=== PATIENT | female | born 1970 | race African-American/Black ===

== ENCOUNTER → 2017-04-12 | Outpatient (CLI) | payer MEDICARE ==
[~2017-04-12] MED LIST: CITA40TA4 PO; ESTR0.62 VAGINAL; FERR325T8 PO; GABA100C4 PO; LISI10TA3 PO; MELO-1 PO; TRAZ100T6 PO
[2017-04-12 13:15] LABS: HEMATOCRIT 31.5 % (35.0-46.0); MEAN CORPUSCULAR HEMOGLOBIN 24.9 PG (27.0-34.0); MEAN CORPUSCULAR HGB CONC 32.3 % (32.0-36.0); PLATELET COUNT 406 TH/MM3 (150-450); RED BLOOD COUNT 4.08 MIL/MM3 (4.00-5.30); RED CELL DISTRIBUTION WIDTH 20.9 % (11.6-17.2); REVIEW FLAG FINAL; WHITE BLOOD COUNT 7.6 TH/MM3 (4.0-11.0)
[2017-04-12 13:18] LABS: ANION GAP 11 MEQ/L (5-15); AST (GOT) 21 U/L (15-37); BICARBONATE 21.3 MEQ/L (21.0-32.0); BLOOD UREA NITROGEN 8 MG/DL (7-18); CHLORIDE 102 MEQ/L (98-107); GLOMERULAR FILTRATION RATE 90 ML/MIN (>89); GLUCOSE,FASTING 73 MG/DL (74-99); POTASSIUM 4.2 MEQ/L (3.5-5.1); SODIUM (NA) 134 MEQ/L (136-145)
[2017-04-12 13:45] LABS: ALKALINE PHOSPHATASE 101 U/L (45-117); ALT (GPT) 22 U/L (10-53); HDL CHOLESTEROL 59.9 MG/DL (40.0-60.0); LDL CHOLESTEROL 105 MG/DL (0-99); TOTAL BILIRUBIN ADULT 0.3 MG/DL (0.2-1.0)
[2017-04-12 14:42] LABS: MICRO ALBUMIN RANDOM URINE RAW 5.4 MG/L (0.0-30.0)
== END ==
LOC: PLAB 08:20
PROVIDERS: ATTEND Family Medicine
DX: D64.9 Anemia, unspecified (principal); E53.8 Deficiency of other specified B group vitamins; I10 Essential (primary) hypertension; F32.9 Major depressive disorder, single episode, unspecified; E66.9 Obesity, unspecified
CPT/HCPCS: 36415; 80053; 80061; 82043; 82607; 84443; 85027

== ENCOUNTER 2017-09-17 12:38 | Observation (INO) | payer MEDICARE ==
[~2017-09-17] VITALS: Ht 167.6 cm; Wt 130.0 kg
[~2017-09-17 12:38] MED LIST changes: +AMLO10TA2 PO; +FERR325T18 PO; -FERR325T8 PO; +LISI-515 PO; -LISI10TA3 PO; -MELO-1 PO; +MELO15TA20 PO; +TRAZ100T10 PO; -TRAZ100T6 PO
[2017-09-17 12:39] VITALS: BP 139/87; PULSE 91; RESP 16; TEMP 98.6; O2SAT 100
[2017-09-17 13:33] LABS: AUTOMATED NEUTROPHIL # 4.6 TH/MM3 (1.8-7.7); BASOPHIL % 0.5 % (0.0-2.0); EOSINOPHIL # 0.1 TH/MM3 (0-0.4); EOSINOPHIL % 1.3 % (0.0-4.0); HEMOGLOBIN 10.9 GM/DL (11.6-15.3); LYMPH % 28.6 % (9.0-44.0); LYMPHOCYTE # 2.2 TH/MM3 (1.0-4.8); MEAN CELL VOLUME 80.6 FL (80.0-100.0); MEAN CORPUSCULAR HEMOGLOBIN 26.5 PG (27.0-34.0); MEAN CORPUSCULAR HGB CONC 32.9 % (32.0-36.0); MEAN PLATELET VOLUME 7.1 FL (7.0-11.0); MONO % 9.2 % (0.0-8.0); MONOCYTE # 0.7 TH/MM3 (0-0.9); NEUT % 60.4 % (16.0-70.0); PLATELET COUNT 380 TH/MM3 (150-450); RED CELL DISTRIBUTION WIDTH 20.7 % (11.6-17.2); WHITE BLOOD COUNT 7.6 TH/MM3 (4.0-11.0)
[2017-09-17 13:44] LABS: PROTHROMBIN TIME - PATIENT 9.8 SEC (9.8-11.6)
[2017-09-17 13:52] LABS: BICARBONATE 22.5 MEQ/L (21.0-32.0); BLOOD UREA NITROGEN 7 MG/DL (7-18); CALCIUM 8.5 MG/DL (8.5-10.1); CHLORIDE 107 MEQ/L (98-107); CREATININE 0.79 MG/DL (0.50-1.00); GLOMERULAR FILTRATION RATE 94 ML/MIN (>89); GLUCOSE,RANDOM 77 MG/DL (74-106); SODIUM (NA) 138 MEQ/L (136-145)
[2017-09-17 13:56] LABS: TROPONIN I LESS THAN 0.02 NG/ML (0.02-0.05)
--- NOTE | 2017-09-17 13:56 | RADRPT ---
EXAM DATE/TIME: 09/17/2017 13:11 [place] COMPARISON: No previous studies available for comparison. INDICATIONS : Chest pains 5 days. MEDICAL HISTORY : Hypertension. SURGICAL HISTORY : Hysterectomy. ENCOUNTER: Initial ACUITY: 4 - 6 days PAIN SCORE: 6/10 LOCATION: Bilateral chest FINDINGS: PA and lateral views of the chest demonstrate the lungs to be symmetrically aerated without evidence of mass, infiltrate or effusion. The cardiomediastinal contours are unremarkable. Osseous structure s are intact. CONCLUSION: Normal examination. Harjinder Choudhary Jr., MD on September 17, 2017 at 13:53 Board Certified Radiologist. This report was verified electronically.
[2017-09-17 15:08] VITALS: BP 187/96; PULSE 67; RESP 18; O2SAT 100
--- NOTE | 2017-09-17 15:21 | PD ---
HPI Chief Complaint: Chest Pain Time Seen by Provider: 14:52 Travel History International Travel<30 days: No Contact w/Intl Traveler<30days: No Traveled to known affect area: No History of Present Illness HPI 47-year-old female presents to the ED for evaluation of cold and cough symptoms 5 days. Patient states that she began having intermittent substernal chest pain that radiates to the back yesterday. Onset at rest, lasting variable periods before resolving spontaneously. Patient endorses accompanying shortness of breath and palpitations. Patient states this pain is worsened by coughing. She endorses a fever of 100.1 by aural thermometer 2 days ago. She reports night sweats. She states that she drinks 12 24 ounce beers daily. She states that she has been attempting to cut back. States that she had an alcohol withdrawal seizure last week and was seen in an outpatient clinic. No history of seizures in the past. She is noncompliant with her antihypertensive medications. She endorses familial history of [place] and her father and grandfather. She denies cigarette smoking or illicit drug use. He is never had a cardiac evaluation. PFSH Past Medical History Anxiety: Yes Depression: Yes Cardiovascular Problems: Yes Hypertension: Yes Neurologic: Yes (PERIPHERAL NEUROPATHY) Seizures: Yes (ETOH WITHDRAWL) Tetanus Vaccination: < 5 Years Influenza Vaccination: Yes ?: Not Past Surgical History Abdominal Surgery: Yes (HERNIA REPAIR, GASTRIC BYPASS) Appendectomy: Yes Section: Yes (X2) Cholecystectomy: Yes Hysterectomy: Yes Social History Alcohol Use: Yes (15 24 OZ CANS BEER) Tobacco Use: No Substance Use: No Allergies-Medications (Allergen,Severity, Reaction): Coded Allergies: Penicillins (Verified Allergy, Severe, skin melgoza, stomach melgoza, 09/17/17) diphenhydramine (Verified Allergy, Severe, hives, 09/17/17) Reported Meds & Prescriptions Reported Meds & Active Scripts Active Amlodipine (Amlodipine Besylate) 10 Mg Tab 10 Mg PO DAILY Lisinopril 20 Mg Tab 20 Mg PO DAILY Premarin Vaginal (Estrogens, Conjugated Vaginal) 0.625 Mg/Gm Cream 1 Gm VAGINAL HS Ferrous Sulfate 325 Mg (65 Mg Iron) Tablet 325 Mg PO BIDPC Citalopram (Citalopram Hydrobromide) 40 Mg Tab 40 Mg PO DAILY Trazodone (Trazodone HCl) 100 Mg Tablet 100 Mg PO HS Gabapentin 100 Mg Cap 100 Mg PO TID Meloxicam 15 Mg Tab 15 Mg PO DAILY Review of Systems Except as stated in HPI: all other systems reviewed are Neg Physical Exam Narrative GENERAL: Well-nourished, well-developed obese female in no acute distress. SKIN: Focused skin assessment warm/dry. HEAD: Normocephalic. EYES: No scleral icterus. No injection or drainage. NECK: Supple, trachea midline. No JVD or lymphadenopathy. CARDIOVASCULAR: Regular rate and rhythm without murmurs, gallops, or rubs. CHEST: Nontender throughout without deformity or crepitus. No retractions. RESPIRATORY: Breath sounds clear and equal bilaterally. No accessory muscle use. GASTROINTESTINAL: Abdomen soft, non-tender, nondistended. Active bowel sounds. MUSCULOSKELETAL: No cyanosis, or edema. BACK: Nontender without obvious deformity. No CVA tenderness. Data Data Last Documented VS Vital Signs Date Time Temp Pulse Resp B/P (MAP) Pulse Ox O2 Delivery O2 Flow Rate FiO2 09/17/17 15:08 67 18 187/96 (126) 100 Room Air 09/17/17 12:39 98.6 Orders Orders Electrocardiogram (09/17/17 12:43) Basic Metabolic Panel (Bmp) (09/17/17 12:43) Ckmb (Isoenzyme) Profile (09/17/17 12:43) Complete Blood Count With Diff (09/17/17 12:43) Magnesium (Mg) (09/17/17 12:43) Prothrombin Time / Inr (Pt) (09/17/17 12:43) Act Partial Throm Time (Ptt) (09/17/17 12:43) Troponin I (09/17/17 12:43) Chest, Pa & Lat (09/17/17 12:43) Influenzae A/B Antigen (09/17/17 12:43) CKMB (09/17/17 12:56) CKMB% (09/17/17 12:56) Alcohol (Ethanol) (09/17/17 15:23) Alcohol Withdrawal Asmt-Ciwa ONCE (09/17/17 15:24) Flumazenil Inj (Romazicon Inj) (09/17/17 15:30) Lorazepam (Ativan) (09/17/17 15:30) Lorazepam Inj (Ativan Inj) (09/17/17 15:30) Lorazepam (Ativan) (09/17/17 15:30) Lorazepam Inj (Ativan Inj) (09/17/17 15:30) Lorazepam Inj (Ativan Inj) (09/17/17 15:30) Lorazepam Inj (Ativan Inj) (09/17/17 15:30) Admit Order (Ed Use Only) (09/17/17 17:02) Labs Laboratory Tests Test 09/17/17 12:56 White Blood Count 7.6 TH/MM3 Red Blood Count 4.10 MIL/MM3 Hemoglobin 10.9 GM/DL Hematocrit 33.0 % Mean Corpuscular Volume 80.6 FL Mean Corpuscular Hemoglobin 26.5 PG Mean Corpuscular Hemoglobin Concent 32.9 % Red Cell Distribution Width 20.7 % Platelet Count 380 TH/MM3 Mean Platelet Volume 7.1 FL Neutrophils (%) (Auto) 60.4 % Lymphocytes (%) (Auto) 28.6 % Monocytes (%) (Auto) 9.2 % Eosinophils (%) (Auto) 1.3 % Basophils (%) (Auto) 0.5 % Neutrophils # (Auto) 4.6 TH/MM3 Lymphocytes # (Auto) 2.2 TH/MM3 Monocytes # (Auto) 0.7 TH/MM3 Eosinophils # (Auto) 0.1 TH/MM3 Basophils # (Auto) 0.0 TH/MM3 CBC Comment DIFF FINAL Differential Comment Prothrombin Time 9.8 SEC Prothromb Time International Ratio 1.0 RATIO Activated Partial Thromboplast Time 23.6 SEC Blood Urea Nitrogen 7 MG/DL Creatinine 0.79 MG/DL Random Glucose 77 MG/DL Calcium Level 8.5 MG/DL Magnesium Level 2.0 MG/DL Sodium Level 138 MEQ/L Potassium Level 4.0 MEQ/L Chloride Level 107 MEQ/L Carbon Dioxide Level 22.5 MEQ/L Anion Gap 9 MEQ/L Estimat Glomerular Filtration Rate 94 ML/MIN Total Creatine Kinase 121 U/L Creatine Kinase MB 0.6 NG/ML Troponin I LESS THAN 0.02 NG/ML Ethyl Alcohol Level 8 MG/DL [facility] Medical Decision Making Medical Screen Exam Complete: Yes Emergency Medical Condition: Yes Differential Diagnosis Viral syndrome versus pleurisy versus alcohol withdrawal versus ACS versus other Narrative Course 47-year-old female presents to the ED for evaluation of cold and cough symptoms 5 days. Patient states that she began having intermittent substernal chest pain that radiates to the back yesterday. Onset at rest, lasting variable periods before resolving spontaneously. Accompanied by SOB and palpitations. She endorses a fever of 100.1 by aural thermometer 2 days ago. She reports night sweats. Endorses 1224 ounce beers daily, endorses recent seizure secondary to attempting to quit. No history of seizures in the past. She is noncompliant with her antihypertensive medications. She endorses familial history of MN and her father and grandfather. She denies cigarette smoking or illicit drug use. She has never had a cardiac evaluation. Patient is afebrile on presentation. Physical exam reveals an obese AA female in no acute distress. Chest CTAB. No reproducible pain in the precordium. Abdomen soft and nontender. No lower extremity edema. Patient was placed on CIWA protocol. EKG rate 84, sinus rhythm. TN interval 138, QRS 82, QTC 43 ms. Normal axis. No acute ST changes. Reviewed by Dr. Nath CXR: No acute disease per radiology read. Cardiac enzymes negative 1. CBC: Hemoglobin 10.9, chronic per record review. Coags: INR 1.0 BMP: Unremarkable. Alcohol: 8 I discussed the results of the workup with the patient. Given her cardiac risk factors I recommended observation for serial cardiac enzymes and EKGs. Patient is agreeable to this plan. Spoke with the resident to agree to accept the patient to the medicine service. Please see medicine notes for disposition. Barbara Elliott Sep 17, 2017 15:21
[2017-09-17] MEDS ORDERED: LORazepam 1 MG TAB PO PRN ×2 (15:30→18:15)
[2017-09-17] MEDS ORDERED: LORazepam 2 MG TAB PO PRN ×2 (15:30→18:15)
[2017-09-17] MEDS ORDERED: FLUMAZENIL 0.5 MG/5 ML VIAL IV PUSH PRN ×2 (15:30→18:15)
[2017-09-17] MEDS ORDERED: LORazepam 2 MG/ML VIAL IV PUSH PRN ×7 (15:30→18:15)
--- NOTE | 2017-09-17 17:48 | HHI.HP ---
[facility] Service Family Medicine Primary Care Physician Stanislav Junior MD Admission Diagnosis chest pain Diagnoses: International Travel<30 Days: No Contact w/Intl Traveler<30days: No Known Affected Area: No History of Present Illness The patient is a pleasant 47 year old woman with PMH significant for HTN and RA being evaluated for chest pain. Patient states she started having chest pain beginning this past Saturday. Patient states her chest pain initially was centrally located, dull and achy and felt similar to heartburn. Patient reports the chest pain radiated to her right lateral side and to her back. Patient then states her chest pain started to feel different over the past 2-3 days. States her chest pain changed and became more intense to a 6-7/10, states the chest pain is sharper and continues to radiate to her right lateral side and right upper back. Denies any left-sided or crushing chest pain, radiation into her arms or jaws. Denies diaphoresis. Patient states she usually drinks about 12-15 24oz cans of beer a day. Denies drinking any other types of etoh. Patient states her last drink was this morning nicki. 05:30. Patient was recently evaluated at the [facility] at the end of August due to possible seizure like activity and thought she might have bitten her tongue. She denies any further seizures or seizure like activity since then. Denies any focal neuro deficit. She does report a fever yesterday she states of 100.1 taken orally. Also endorses mild cough sometimes productive. Denies significant nasal or chest congestion. (Jorje Zamarripa MD) Review of Systems Constitutional: COMPLAINS OF: Fever, DENIES: Chills, Dizziness, Change in appetite Eyes: DENIES: Blurred vision, Diplopia Respiratory: COMPLAINS OF: Cough, Sputum production, DENIES: Wheezing, Hemoptysis, Shortness of breath Cardiovascular: COMPLAINS OF: Chest pain, DENIES: Palpitations, Lower Extremity Edema Gastrointestinal: DENIES: Abdominal pain, Black stools, Bloody stools, Constipation, Diarrhea, Nausea, Vomiting Genitourinary: DENIES: Hematuria, Dysuria Musculoskeletal: COMPLAINS OF: Back pain, DENIES: Joint pain, Neck pain Integumentary: DENIES: Rash Neurologic: COMPLAINS OF: Headache, DENIES: Localized weakness, Tremor ( Jorje Zamarripa MD) Endocrine: DENIES: Polydipsia, Polyuria Ears, nose, mouth, throat: COMPLAINS OF: Nasal discharge (resolving), Throat pain (from recent URI, improving), DENIES: Oral lesions, Ear Pain, Epistaxis, Sinus Pain, Odynophagia Respiratory: COMPLAINS OF: Cough (recent URI) Musculoskeletal: COMPLAINS OF: Joint pain (bilateral lower extremities, chronic , improved with NSAIDs) Neurologic: COMPLAINS OF: Paresthesias (chronic right upper extremity, intermittent) Psychiatric: COMPLAINS OF: Mood changes (endorses significant stress), DENIES: Suicidal Ideation (Lesly Marquez MD) Past Family Social History Past Medical History RA HTN Depression Insomnia Neuropathy, unspecified cause Sickle cell trait Past Surgical History Hysterectomy in 2002, cervix removed Gastric Bypass 2006 Cholecystectomy in 2015 Umbilical hernia repair in 2015 C-sections x2 (Jorje Zamarripa MD) Allergies: Coded Allergies: Penicillins (Verified Allergy, Severe, skin melgoza, stomach melgoza, 09/17/17) diphenhydramine (Verified Allergy, Severe, hives, 09/17/17) Family History Father: HTN, Heart disease Mother: RA Social History Denies tobacco use Admits to drinking 12-15 24oz cans of beers daily Denies illicit substance use Works as a live in support professional for 6 years (Jorje Zamarripa MD) Physical Exam Vital Signs Vital Signs Date Time Temp Pulse Resp B/P (MAP) Pulse Ox O2 Delivery O2 Flow Rate FiO2 09/17/17 15:08 67 18 187/96 (126) 100 Room Air 09/17/17 12:39 98.6 91 16 139/87 (104) 100 Room Air Physical Exam GENERAL: NAD, lying comfortably in bed NEURO: Alert. Normal speech. nursing assoc grossly intact. Motor grossly normal. SKIN: Warm and dry. No rashes or erythema. HEAD: Normocephalic. Atraumatic. EYES: PERRL. EOMI. No scleral icterus. No injection or drainage. ENT: No nasal drainage. Moist mucous membranes. No oral ulcers or lesions. NECK: Supple, trachea midline. No JVD or lymphadenopathy. No carotid bruits. CHEST WALL: Tenderness to palpation of central and right-sided chest wall CARDIOVASCULAR: Regular rate and rhythm without murmurs, rubs, or gallops. Peripheral pulses 2+. Capillary refill < 2 seconds. RESPIRATORY: Breath sounds clear to auscultation and equal bilaterally, without wheezes, rales, or rhonchi. No accessory muscle use. GASTROINTESTINAL: Abdomen soft, nontender, nondistended, normal BS. No rebound tenderness. No guarding. MUSCULOSKELETAL: No lower extremity edema. Normal range of motion. BACK: Nontender without obvious deformity. No CVA tenderness. Laboratory Laboratory Tests Test 09/17/17 12:56 White Blood Count 7.6 Red Blood Count 4.10 Hemoglobin 10.9 Hematocrit 33.0 Mean Corpuscular Volume 80.6 Mean Corpuscular Hemoglobin 26.5 Mean Corpuscular Hemoglobin Concent 32.9 Red Cell Distribution Width 20.7 Platelet Count 380 Mean Platelet Volume 7.1 Neutrophils (%) (Auto) 60.4 Lymphocytes (%) (Auto) 28.6 Monocytes (%) (Auto) 9.2 Eosinophils (%) (Auto) 1.3 Basophils (%) (Auto) 0.5 Neutrophils # (Auto) 4.6 Lymphocytes # (Auto) 2.2 Monocytes # (Auto) 0.7 Eosinophils # (Auto) 0.1 Basophils # (Auto) 0.0 CBC Comment DIFF FINAL Differential Comment Prothrombin Time 9.8 Prothromb Time International Ratio 1.0 Activated Partial Thromboplast Time 23.6 Blood Urea Nitrogen 7 Creatinine 0.79 Random Glucose 77 Calcium Level 8.5 Magnesium Level 2.0 Sodium Level 138 Potassium Level 4.0 Chloride Level 107 Carbon Dioxide Level 22.5 Anion Gap 9 Estimat Glomerular Filtration Rate 94 Total Creatine Kinase 121 Creatine Kinase MB 0.6 Troponin I LESS THAN 0.02 Ethyl Alcohol Level 8 Date/Time Source Procedure Growth Status 09/17/17 12:56 Nasal Washing Influenza Types A,B Antigen (VERA) - Final NEGATIVE FOR FLU A AND B ANTIGEN.... Complete (Jorje Zamarripa MD) Physical Exam Pharyngeal erythema without exudate is noted. No sinus tenderness. Patient has diffuse tenderness to palpation over thorax, and indicates some reproduction of chest pain No gross joint deformity appreciated for upper and lower extremities. No nodules Exam otherwise as above (Lesly Marquez MD) Result Diagram: 09/17/17 1256 09/17/17 1256 Imaging Last 72 hours Impressions Chest X-Ray 09/17/17 1243 Signed Impressions: Service Date/Time: Sunday, September 17, 2017 13:11 - CONCLUSION: Normal examination. Harjinder Choudhary Jr., MD (Jorje Zamarripa MD) Caprini VTE Risk Assessment Caprini VTE Risk Assessment: Mod/High Risk (score >= 2) Caprini Risk Assessment Model Point Value = 1 Point Value = 2 Point Value = 3 Point Value = 5 Age 41-60 Minor surgery BMI > 25 kg/m2 Swollen legs Varicose veins or History of unexplained or recurrent spontaneous Oral contraceptives or hormone replacement Sepsis (< 1 month) Serious lung disease, including pneumonia (< 1 month) Abnormal pulmonary function Acute myocardial infarction Congestive heart failure (< 1 month) History of inflammatory bowel disease Medical patient at bed rest Age 61-74 Arthroscopic surgery Major open surgery (> 45 min) Laparoscopic surgery (> 45 min) Malignancy Confined to bed (> 72 hours) Immobilizing plaster cast Central venous access Age >= 75 History of VTE Family history of VTE Factor V Leiden Prothrombin [id number] Lupus anticoagulant Anticardiolipin antibodies Elevated serum homocysteine Heparin-induced thrombocytopenia Other congenital or acquired thrombophilia Stroke (< 1 month) Elective arthroplasty Hip, pelvis, or leg fracture Acute spinal cord injury (< 1 month) Prophylaxis Regimen Total Risk Factor Score Risk Level Prophylaxis Regimen 0-1 Low Early ambulation 2 Moderate Order ONE of the following: *Sequential Compression Device (SCD) *Heparin 5000 units SQ BID 3-4 Higher Order ONE of the following medications: *Heparin 5000 units SQ TID *Enoxaparin/Lovenox 40 mg SQ daily (WT < 150 kg, CrCl > 30 mL/min) *Enoxaparin/Lovenox 30 mg SQ daily (WT < 150 kg, CrCl > 10-29 mL/min) *Enoxaparin/Lovenox 30 mg SQ BID (WT < 150 kg, CrCl > 30 mL/min) AND/OR *Sequential Compression Device (SCD) 5 or more Highest Order ONE of the following medications: *Heparin 5000 units SQ TID (Preferred with Epidurals) *Enoxaparin/Lovenox 40 mg SQ daily (WT < 150 kg, CrCl > 30 mL/min) *Enoxaparin/Lovenox 30 mg SQ daily (WT < 150 kg, CrCl > 10-29 mL/min) *Enoxaparin/Lovenox 30 mg SQ BID (WT < 150 kg, CrCl > 30 mL/min) AND *Sequential Compression Device (SCD) (Jorje Zamarripa MD) Assessment and Plan Assessment and Plan 47 year old woman being admitted due to chest pain and etoh abuse. Code Status Full code Discussed Condition With [facility] Service (Jorje Zamarripa MD) Attending Attestation Patient seen and examined this morning, H&P reviewed, and corroborated at bedside with patient. See interval progress documented in resident note from . I HAVE REVIEWED THE RECORD AND AGREE WITH THE ABOVE NOTE AND PLAN OF CARE WAS DISCUSSED. I HAVE AUTHORIZED THE ORDER FOR PLACEMENT IN OBSERVATION STATUS. (Lesly Marquez MD) Problem List: (1) Chest pain ICD Codes: R07.9 - Chest pain, unspecified Status: Acute Plan: DDX includes ACS, costochondritis, GERD, pneumonia, P/E, anxiety EKG shows NSR without acute ST changes Initial troponin < 0.02 CXR without acute findings Plan: - Rule out ACS trend EKGs and troponins q6h x2 - Will start motrin 400 mg po q6h due to patient possibly having costochondritis - Give aspirin 81mg po now - Start metoprolol 25 mg po q12h - Protonix 40 mg po daily (2) ETOH abuse ICD Codes: F10.10 - Alcohol abuse, uncomplicated Status: Chronic Plan: - [facility] protocol - Give thiamine, MV, folic acid PO - Consult CM-etoh abuse to assist with discharge planning (3) Hypertension ICD Codes: I10 - Essential (primary) hypertension Status: Chronic Plan: - BP noted to be elevated to 187/98 earlier - Resume home medications amlodipine 10 mg po daily and lisinopril 20 mg po daily - Start metoprolol as above - Monitor vitals q4h (4) Anemia ICD Codes: D64.9 - Anemia, unspecified Status: Chronic Plan: H/H noted at 10.9/33.0, continue to monitor Continue ferrous sulfate 325 mg bid (5) Nutrition, metabolism, and development symptoms ICD Codes: R63.8 - Other symptoms and signs concerning food and fluid intake Status: Acute Plan: Fluids: NS at 100 cc/hr Electrolytes: WNL, continue to monitor Nutrition: heart healthy diet DVT ppx: Lovenox 40 mg sq q24h GI ppx: Protonix by mouth Depression: resume home celexa (Jorje Zamarripa MD) Physician Certification 2 Midnight Certification Type: Admission for Inpatient Services Order for Inpatient Services The services are ordered in accordance with Medicare regulations or non- Medicare payer requirements, as applicable. In the case of services not specified as inpatient-only, they are appropriately provided as inpatient services in accordance with the 2-midnight benchmark. Estimated LOS (days): 1 days is the estimated time the patient will need to remain in the hospital, assuming treatment plan goals are met and no additional complications. Post-Hospital Plan: Home (Jorje Zamarripa MD) Jorje Zamarripa MD Sep 17, 2017 17:48 Lesly Marquez MD Sep 18, 2017 13:44
[2017-09-17] MEDS ORDERED: SODIUM CHLORIDE 0.9% FLUSH 10 ML FLUSH IV FLUSH PRN ×2 (18:00→18:15)
[2017-09-17] MEDS ORDERED: NALOXONE HCL 0.4 MG/ML AMP IV PUSH PRN (18:15)
[2017-09-17] MEDS ORDERED: ONDANSETRON HCL 4 MG/2 ML VIAL IVP PRN (18:15)
[2017-09-17] MEDS: IBUPROFEN 400 MG TAB PO SCH (18:15)
[2017-09-17] MEDS ORDERED: SENNOSIDES 8.6 MG TAB PO PRN (18:15)
[2017-09-17] MEDS ORDERED: ZOLPIDEM TARTRATE 5 MG TAB PO PRN (18:15)
[2017-09-17] MEDS ORDERED: BISACODYL 10 MG SUPP RECTAL PRN (18:15)
[2017-09-17] MEDS ORDERED: MAGNESIUM HYDROXIDE SUSP 30 ML CUP PO PRN (18:15)
[2017-09-17] MEDS ORDERED: LACTULOSE SYRUP 20 GM/30 ML CUP PO PRN (18:15)
[2017-09-17 18:27] VITALS: BP 143/103; PULSE 72; RESP 15; O2SAT 100
[2017-09-17] MEDS: LISINOPRIL 20 MG TAB PO SCH (18:30)
[2017-09-17 19:36] VITALS: BP 138/71; PULSE 92; RESP 16; TEMP 98.4; O2SAT 98
[2017-09-17 20:00] VITALS: O2SAT 98
[2017-09-17] MEDS: SODIUM CHLORIDE 0.9% FLUSH 10 ML FLUSH IV FLUSH SCH ×2 (20:05→22:18)
[2017-09-17] MEDS: LORazepam 2 MG/ML VIAL IV PUSH PRN (20:05)
[2017-09-17] MEDS: ASPIRIN 81 MG CHEW TAB CHEW SCH (22:15)
[2017-09-17] MEDS: SODIUM CHLOR 0.9% 1000 ML INJ 1,000 ML IV SCH (22:15)
[2017-09-17] MEDS: CITALOPRAM HYDROBROMIDE 40 MG TAB PO SCH (22:16)
[2017-09-17] MEDS: THIAMINE HCL 100 MG TAB PO SCH (22:16)
[2017-09-17] MEDS: MULTIVITAMINS/MINERALS THERAPEUTIC TAB PO SCH (22:16)
[2017-09-17] MEDS: FERROUS SULFATE 325 MG (65 MG ELEMENTAL IRON) TAB PO SCH (22:16)
[2017-09-17] MEDS: FOLIC ACID 1 MG TAB PO SCH (22:16)
[2017-09-17] MEDS: PANTOPRAZOLE SOD 40 MG DELAYED RELEASE TAB PO SCH (22:16)
[2017-09-17] MEDS: traZODone HCL 100 MG TAB PO SCH (22:17)
[2017-09-17] MEDS: METOPROLOL TARTRATE 25 MG TAB PO SCH (22:17)
[2017-09-17] MEDS: DOCUSATE SODIUM 50 MG/SENNA 8.6 MG TAB PO SCH (22:17)
[2017-09-17] MEDS: ENOXAPARIN SODIUM 40 MG/0.4 ML SYRINGE SQ SCH (22:18)
[2017-09-17 23:21] VITALS: BP 112/59; PULSE 72; RESP 16; TEMP 98.5; O2SAT 95
[2017-09-18] VITALS (7 sets, daily range): BP systolic 118–152; BP diastolic 67–89; PULSE 61–72; RESP 14–18; TEMP 97.4–98.5; O2SAT 95–99
[2017-09-18] MEDS: IBUPROFEN 400 MG TAB PO SCH ×2 (03:55)
[2017-09-18] MEDS: LORazepam 2 MG/ML VIAL IV PUSH PRN ×2 (03:55→11:11)
[2017-09-18 06:21] LABS: AUTOMATED NEUTROPHIL # 4.9 TH/MM3 (1.8-7.7); BASOPHIL % 0.3 % (0.0-2.0); EOSINOPHIL # 0.1 TH/MM3 (0-0.4); EOSINOPHIL % 1.4 % (0.0-4.0); HEMATOCRIT 29.1 % (35.0-46.0); HEMOGLOBIN 9.6 GM/DL (11.6-15.3); LYMPHOCYTE # 2.3 TH/MM3 (1.0-4.8); MEAN CELL VOLUME 80.4 FL (80.0-100.0); MEAN CORPUSCULAR HEMOGLOBIN 26.4 PG (27.0-34.0); MEAN CORPUSCULAR HGB CONC 32.8 % (32.0-36.0); MEAN PLATELET VOLUME 7.2 FL (7.0-11.0); MONO % 9.8 % (0.0-8.0); MONOCYTE # 0.8 TH/MM3 (0-0.9); NEUT % 60.5 % (16.0-70.0); PLATELET COUNT 320 TH/MM3 (150-450); RED BLOOD COUNT 3.62 MIL/MM3 (4.00-5.30); RED CELL DISTRIBUTION WIDTH 21.3 % (11.6-17.2); WHITE BLOOD COUNT 8.1 TH/MM3 (4.0-11.0)
[2017-09-18 06:53] LABS: BICARBONATE 26.2 MEQ/L (21.0-32.0); BLOOD UREA NITROGEN 12 MG/DL (7-18); CALCIUM 8.1 MG/DL (8.5-10.1); CHLORIDE 106 MEQ/L (98-107); CREATININE 0.72 MG/DL (0.50-1.00); GLOMERULAR FILTRATION RATE 105 ML/MIN (>89); GLUCOSE,RANDOM 80 MG/DL (74-106); SODIUM (NA) 138 MEQ/L (136-145)
[2017-09-18 06:56] LABS: TROPONIN I LESS THAN 0.02 NG/ML (0.02-0.05)
[2017-09-18] MEDS: SODIUM CHLORIDE 0.9% FLUSH 10 ML FLUSH IV FLUSH SCH ×4 (09:00→20:24)
[2017-09-18] MEDS: DOCUSATE SODIUM 50 MG/SENNA 8.6 MG TAB PO SCH ×2 (09:00→20:23)
--- NOTE | 2017-09-18 09:15 | HHI.FPPN ---
Subjective Remarks Still with persistent 7 out of 10 chest pain. Worse when laying on her right side and touch. No N/V/diaphoresis, jaw pain, feeling of doom. Had episode on Saturday09/16/2017 when she was in an argument and has crushing substernal cp that was relived with rest after 15 minutes. No blood in stools or diarrhea. Not really complaining of increased acid reflux symptoms. She has been working out more and not having any chest pain while walking on a treadmill. (Miller Livingston MD, R3) Objective Vitals Vital Signs Date Time Temp Pulse Resp B/P (MAP) Pulse Ox O2 Delivery O2 Flow Rate FiO2 09/18/17 08:17 97.8 62 18 152/84 (106) 98 09/18/17 05:29 64 09/18/17 04:21 97.5 71 16 132/75 (94) 95 09/17/17 23:21 98.5 72 16 112/59 (76) 95 09/17/17 20:00 98 09/17/17 19:36 98.4 92 16 138/71 (93) 98 09/17/17 19:27 09/17/17 18:27 72 15 143/103 (116) 100 Room Air 09/17/17 15:08 67 18 187/96 (126) 100 Room Air 09/17/17 12:39 98.6 91 16 139/87 (104) 100 Room Air I/O 09/17/17 09/17/17 09/17/17 09/18/17 09/18/17 09/18/17 07:00 15:00 23:00 07:00 15:00 23:00 Intake Total 850 ml Balance 850 ml Intake Oral 850 ml # Voids 3 (Miller Livingston MD, R3) Result Diagram: 09/18/17 0526 09/18/17 0526 Imaging Last 72 hours Impressions Chest X-Ray 09/17/17 1243 Signed Impressions: Service Date/Time: Sunday, September 17, 2017 13:11 - CONCLUSION: Normal examination. Harjinder Choudhary Jr., MD Objective Remarks GEN: NAD, resting comfortable HEENT: mild proptosis of eyes, PERRL, EOMI, throat slightly erythematous and without exudates or petechiae. Resp: CTAB, breathing comfortably. CV: RRR, faint heart sounds, pulses risk to right radial. Pain on palpation of sternum and pain with movement of right arm when brought passed the midline. GI: SOFT NT ND EXT: no edema in lower extremities. No calf tenderness. (Miller Livingston MD, R3) A/P Assessment and Plan 47 year old woman being admitted due to chest pain and etoh abuse. Discharge Planning today if negative Lexiscan nuclear stress test. (Miller Livingston MD, R3) Attending Attestation THIS CASE WAS DISCUSSED WITH THE RESIDENT PHYSICIAN. H&P reviewed and additional comments added on admit note. I HAVE REVIEWED THE RECORD AND AGREE WITH THE ABOVE NOTE AND PLAN OF CARE WAS DISCUSSED. I HAVE AUTHORIZED THE ORDER FOR PLACEMENT IN OBSERVATION STATUS. (Lesly Marquez MD) Problem List: (1) Chest pain ICD Codes: R07.9 - Chest pain, unspecified Status: Acute Plan: Likely costochondritis vs anxiety.panic. EKG shows NSR. Isolated t wave inversion in lead V1 on admission that has resolved. Troponins < 0.02 x 3. CXR without acute findings Plan: - ACS unlikely given troponin negative x 3, reproducible symptoms on palpation of sternum. However, will get Lexiscan / cardiac nuclear stress test to help rule this out. Can be d/c'ed home if negative. - Give aspirin 81mg po now - Start metoprolol 25 mg po q12h - Protonix 40 mg po daily - Reviewed avoidance of ibuprofen given possible acid reflux and esophagitis symptoms. - Should continue with exercise and healthy diet. (2) ETOH abuse ICD Codes: F10.10 - Alcohol abuse, uncomplicated Status: Chronic Plan: - [facility] protocol - Give thiamine, MV, folic acid PO - Consult CM-etoh abuse to assist with discharge planning (3) Hypertension ICD Codes: I10 - Essential (primary) hypertension Status: Chronic Plan: - BP noted to be elevated on admission. Resolved. - Resume home medications amlodipine 10 mg po daily and lisinopril 20 mg po daily - Start metoprolol as above. Tolerating well. - Monitor vitals q4h (4) Anemia ICD Codes: D64.9 - Anemia, unspecified Status: Chronic Plan: H/H noted at 10.9/33.0, continue to monitor Continue ferrous sulfate 325 mg bid (5) Nutrition, metabolism, and development symptoms ICD Codes: R63.8 - Other symptoms and signs concerning food and fluid intake Status: Acute Plan: Fluids: PO reg diet. Electrolytes: WNL, continue to monitor Nutrition: heart healthy diet DVT ppx: Lovenox 40 mg sq q24h GI ppx: Protonix by mouth Depression: resume home celexa SDW Dr. Marquez (Miller Livingston MD, R3) Miller Livingston MD, R3 Sep 18, 2017 09:15 Lesly Marquez MD Sep 18, 2017 14:00
[2017-09-18] MEDS ORDERED: PNEUMOCOCCAL POLYVALENT INJ 25 MCG/0.5 ML SYR IM ONE (10:00)
[2017-09-18] MEDS: FERROUS SULFATE 325 MG (65 MG ELEMENTAL IRON) TAB PO SCH ×2 (10:32→16:27)
[2017-09-18] MEDS: GABAPENTIN 100 MG CAP PO SCH ×3 (10:32→16:30)
[2017-09-18] MEDS: PANTOPRAZOLE SOD 40 MG DELAYED RELEASE TAB PO SCH (10:32)
[2017-09-18] MEDS: CITALOPRAM HYDROBROMIDE 40 MG TAB PO SCH (10:32)
[2017-09-18] MEDS: LISINOPRIL 20 MG TAB PO SCH (10:33)
[2017-09-18] MEDS: ASPIRIN 81 MG CHEW TAB CHEW SCH (10:33)
[2017-09-18] MEDS: MULTIVITAMINS/MINERALS THERAPEUTIC TAB PO SCH (10:33)
[2017-09-18] MEDS: FOLIC ACID 1 MG TAB PO SCH (10:33)
[2017-09-18] MEDS: METOPROLOL TARTRATE 25 MG TAB PO SCH ×2 (10:34→20:23)
[2017-09-18] MEDS: THIAMINE HCL 100 MG TAB PO SCH (10:35)
[2017-09-18] MEDS: ACETAMINOPHEN 325 MG TAB PO PRN ×2 (11:10→22:41)
[2017-09-18] MEDS ORDERED: PANT40TA3 PO (13:33)
[2017-09-18] MEDS ORDERED: METO25TA3 PO (13:33)
[2017-09-18] MEDS ORDERED: ASPI1TAB57 PO (13:36)
--- NOTE | 2017-09-18 13:39 | HHI.DCPOC ---
Discharge Care Plan Diagnosis: (1) Fatigue (2) Alcohol withdrawal (3) Chest pain (4) Anemia (5) Hypertension Goals to Promote Your Health * To prevent worsening of your condition and complications * To maintain your health at the optimal level Directions to Meet Your Goals Take your medications as prescribed Follow your dietary instruction Follow activity as directed Keep your appointments as scheduled Take your immunizations and boosters as scheduled If your symptoms worsen call your PCP, if no PCP go to Urgent Care Center or Emergency Room Smoking is Dangerous to Your Health. Avoid second hand smoke Call the 24-hour hour crisis hotline for domestic abuse at Miller Livingston MD, R3 Sep 18, 2017 13:39
[2017-09-18] MEDS: SODIUM CHLOR 0.9% 1000 ML INJ 1,000 ML IV SCH ×2 (16:27→20:24)
[2017-09-18] MEDS: ENOXAPARIN SODIUM 40 MG/0.4 ML SYRINGE SQ SCH (20:23)
[2017-09-18] MEDS: traZODone HCL 100 MG TAB PO SCH (20:23)
--- NOTE | 2017-09-18 21:12 | EKG ---
Date Performed: 09/18/2017 Time Performed: 04:10:02 PTAGE: 47 years EKG: Sinus rhythm NORMAL ECG PREVIOUS TRACING : 09/17/2017 19.01 Since the prior tracing, there has been no significant walsh DOCTOR: Jamaal Soria Interpretating Date/Time 09/18/2017 21:10:10
--- NOTE | 2017-09-18 21:47 | EKG ---
Date Performed: 09/17/2017 Time Performed: 19:01:13 PTAGE: 47 years EKG: Sinus rhythm NORMAL ECG PREVIOUS TRACING : 09/17/2017 13.03 Since the prior tracing, there has been no significant walsh DOCTOR: Jamaal Soria Interpretating Date/Time 09/18/2017 21:46:11
--- NOTE | 2017-09-18 22:11 | EKG ---
Date Performed: 09/17/2017 Time Performed: 13:03:21 PTAGE: 47 years EKG: Sinus rhythm POSSIBLE LEFT ATRIAL ENLARGEMENT BORDERLINE ECG NO PREVIOUS TRACING DOCTOR: Jamaal Soria Interpretating Date/Time 09/18/2017 22:10:17
[2017-09-19] MEDS: SODIUM CHLOR 0.9% 1000 ML INJ 1,000 ML IV SCH (01:02)
[2017-09-19 03:52] VITALS: BP 178/107; PULSE 72; RESP 14; TEMP 97.8; O2SAT 97
[2017-09-19 07:02] LABS: AUTOMATED NEUTROPHIL # 3.9 TH/MM3 (1.8-7.7); BASOPHIL % 0.3 % (0.0-2.0); EOSINOPHIL # 0.1 TH/MM3 (0-0.4); EOSINOPHIL % 2.1 % (0.0-4.0); HEMATOCRIT 29.6 % (35.0-46.0); HEMOGLOBIN 9.8 GM/DL (11.6-15.3); LYMPH % 28.8 % (9.0-44.0); MEAN CELL VOLUME 80.1 FL (80.0-100.0); MEAN CORPUSCULAR HEMOGLOBIN 26.5 PG (27.0-34.0); MEAN CORPUSCULAR HGB CONC 33.1 % (32.0-36.0); MEAN PLATELET VOLUME 7.1 FL (7.0-11.0); MONO % 11.6 % (0.0-8.0); MONOCYTE # 0.8 TH/MM3 (0-0.9); NEUT % 57.2 % (16.0-70.0); PLATELET COUNT 339 TH/MM3 (150-450); RED CELL DISTRIBUTION WIDTH 21.2 % (11.6-17.2); WHITE BLOOD COUNT 6.9 TH/MM3 (4.0-11.0)
[2017-09-19 07:31] LABS: ALBUMIN 2.9 GM/DL (3.4-5.0); ALT (GPT) 21 U/L (10-53); AST (GOT) 19 U/L (15-37); BICARBONATE 26.4 MEQ/L (21.0-32.0); BLOOD UREA NITROGEN 9 MG/DL (7-18); CALCIUM 8.1 MG/DL (8.5-10.1); CHLORIDE 107 MEQ/L (98-107); CREATININE 0.73 MG/DL (0.50-1.00); GLOMERULAR FILTRATION RATE 103 ML/MIN (>89); GLUCOSE,RANDOM 81 MG/DL (74-106); SODIUM (NA) 138 MEQ/L (136-145)
[2017-09-19 07:32] LABS: ALKALINE PHOSPHATASE 96 U/L (45-117); TOTAL BILIRUBIN ADULT 0.3 MG/DL (0.2-1.0); TOTAL PROTEIN 7.4 GM/DL (6.4-8.2)
[2017-09-19 07:42] VITALS: BP 140/88; PULSE 68; RESP 18; TEMP 98; O2SAT 97
[2017-09-19 08:21] VITALS: O2SAT 97
[2017-09-19] MEDS ORDERED: LISINOPRIL 10 MG TAB PO SCH (09:00)
[2017-09-19] MEDS ORDERED: REGADENOSON INJ 0.4 MG/5 ML SYR ONE ×2 (09:27→09:56)
--- NOTE | 2017-09-19 10:08 | HHI.FPPN ---
Subjective Remarks Patient feeling better. Still having 4 out of 10 right-sided chest pain that radiates to her back. Worse with movement of her right arm, and to palpation. She reports that the Tylenol helps. She tolerated the Lexicon stress test this morning well. Denies any shortness of breath, chest pain that is worse on inspiration. She denies any oral contraceptive use/hormonal use. He has never had a blood clot before. Denies any long trips. Denies swelling or pain in one leg. She also reports that she has been drinking 12, 24 ounce cans of beer daily. She doesn't feel like she has withdrawn during this hospitalization x48 hrs. He would like to seek inpatient alcohol detoxification. She would also like to be evaluated for depression/anxiety. She is requesting a note for work , saying that she can return. (Miller Livingston MD, R3) Objective Vitals Vital Signs Date Time Temp Pulse Resp B/P (MAP) Pulse Ox O2 Delivery O2 Flow Rate FiO2 09/19/17 08:21 97 21 09/19/17 07:42 98.0 68 18 140/88 (105) 97 09/19/17 03:52 97.8 72 14 178/107 (130) 97 09/18/17 23:43 98.2 61 14 135/89 (104) 97 09/18/17 23:41 18 09/18/17 19:12 98.5 71 14 151/88 (109) 98 09/18/17 16:00 97.4 72 18 120/67 (84) 99 09/18/17 11:53 97.7 63 18 118/74 (89) 98 I/O 09/18/17 09/18/17 09/18/17 09/19/17 09/19/17 09/19/17 07:00 15:00 23:00 07:00 15:00 23:00 Intake Total 850 ml 1000 ml Balance 850 ml 1000 ml Intake Oral 850 ml IV Total 1000 ml # Voids 3 (Miller Livingston MD, R3) Result Diagram: 09/19/1725 09/19/17 0625 Imaging Last 72 hours Impressions Myocardial Perfusion Scan Nuc Med 09/18/17 0000 Signed Impressions: Service Date/Time: Monday, September 18, 2017 13:38 - CONCLUSION: 1. No evidence for ischemia or infarction. 2. Intact wall motion with EF of greater than 70%%. RISK CATEGORY: Low (<1%% Annual Mortality Rate) Bear Garcia MD Chest X-Ray 09/17/17 1243 Signed Impressions: Service Date/Time: Sunday, September 17, 2017 13:11 - CONCLUSION: Normal examination. Harjinder Choudhary Jr., MD Objective Remarks GEN: NAD, resting comfortable HEENT: mild proptosis of eyes, PERRL, EOMI, throat slightly erythematous and without exudates or petechiae. Resp: CTAB, breathing comfortably. CV: RRR, faint heart sounds, pulses risk to right radial. Pain on palpation of sternum and pain with movement of right arm when brought passed the midline. GI: SOFT NT ND EXT: no edema in lower extremities. No calf tenderness. (Miller Livingston MD, R3) A/P Assessment and Plan 47 year old woman being admitted due to chest pain and etoh abuse. Discharge Planning today if negative Lexiscan nuclear stress test. (Miller Livingston MD, R3) Attending Attestation Patient seen and examined. Case reviewed and discussed with Dr Livingston. Agree with plan of care as discussed with me and documented in the resident note. (Lesly Marquez MD) Problem List: (1) Chest pain ICD Codes: R07.9 - Chest pain, unspecified Status: Acute Plan: Likely costochondritis vs anxiety/panic. EKG shows NSR. Isolated t wave inversion in lead V1 on admission that has resolved. Troponins < 0.02 x 3. CXR without acute findings Plan: - ACS unlikely given troponin negative x 3, reproducible symptoms on palpation of sternum. Lexiscan / cardiac nuclear stress test no signs of ischemia, and an ejection fraction of 70%. - Give aspirin 81mg po now - Start metoprolol 25 mg po q12h - Protonix 40 mg po daily - Reviewed avoidance of ibuprofen given possible acid reflux and esophagitis symptoms. - Should continue with exercise and healthy diet. (2) ETOH abuse ICD Codes: F10.10 - Alcohol abuse, uncomplicated Status: Chronic Plan: - CIWA protocol; has not needed IV Ativan. - Give thiamine, MV, folic acid PO - Consult CM-etoh abuse to assist with discharge planning (3) Hypertension ICD Codes: I10 - Essential (primary) hypertension Status: Chronic Plan: - BP noted to be elevated on admission. Resolved. - Resume home medications amlodipine 10 mg po daily. Increase lisinopril from 20 mg daily to 30 mg daily. She was informed of this change. - Start metoprolol as above. Tolerating well. - Monitor vitals q4h (4) Anemia ICD Codes: D64.9 - Anemia, unspecified Status: Chronic Plan: H/H noted at 10.9/33.0, continue to monitor Continue ferrous sulfate 325 mg bid Throughout the course of her admission. Microcytic anemia, suggestive of iron deficiency anemia. So maybe contributed from alcohol use. Further workup as an outpatient. (5) Nutrition, metabolism, and development symptoms ICD Codes: R63.8 - Other symptoms and signs concerning food and fluid intake Status: Acute Plan: Fluids: PO reg diet. Electrolytes: WNL, continue to monitor Nutrition: heart healthy diet DVT ppx: Lovenox 40 mg sq q24h GI ppx: Protonix by mouth Depression: resume home celexa DW Dr. Marquez (Miller Livingston MD, R3) Miller Livingston MD, R3 Sep 19, 2017 10:08 Lesly Marquez MD Sep 19, 2017 12:42
[2017-09-19] MEDS ORDERED: AMINOPHYLLINE INJ 250 MG/10 ML VIAL ONE (10:16)
[2017-09-19 11:17] VITALS: BP 122/76; PULSE 67; RESP 18; TEMP 98.1; O2SAT 100
--- NOTE | 2017-09-19 11:20 | RADRPT ---
EXAM DATE/TIME: 09/18/2017 13:38 [facility] COMPARISON: No previous studies available for comparison. INDICATIONS : Substernal chest pain radiating to the back. Abnormal EKG. DOSE: 31.2 mCi Tc99m Myoview at stress. 31.5 mCi Tc99m Myoview at rest. 0.4 mg Lexiscan STRESS SYMPTOMS: Weird and nausea. MEDICATIONS: 1.) 100 mg Aminophylline IV EJECTION FRACTION: > 70% MEDICAL HISTORY : Hypertension. SURGICAL HISTORY : Appendectomy. Cholecystectomy. Hysterectomy. ENCOUNTER: Initial ACUITY: 1 day PAIN SCALE: 6/10 LOCATION: Substernal chest TECHNIQUE: The patient underwent pharmacologic stress with infusion of prescribed dose. Continuous ECG tracing was monitored during stress. Gated SPECT imaging was performed after stress and conventional SPECT i maging was performed at rest. The examination was performed on a SPECT/CT scanner, both attenuation and non-corrected datasets were reviewed. FINDINGS: DISTRIBUTION: The maximum perfused segment at stress is in the lateral wall. PERFUSION STUDY: The pattern of perfusion at stress is within normal limits. GATED STUDY: There is intact wall motion and thickening without hypokinetic or dyskinetic segments. CONCLUSION: 1. No evidence for ischemia or infarction. 2. Intact wall motion with EF of greater than 70%. RISK CATEGORY: Low (<1% Annual Mortality Rate) Bear Garcia MD on September 19, 2017 at 11:08 Board Certified Radiologist. This report was verified electronically.
[2017-09-19] MEDS ORDERED: LISI10TA3 PO (12:06)
[2017-09-19] MEDS: MULTIVITAMINS/MINERALS THERAPEUTIC TAB PO SCH (12:47)
[2017-09-19] MEDS: GABAPENTIN 100 MG CAP PO SCH ×2 (12:48→14:57)
[2017-09-19] MEDS: DOCUSATE SODIUM 50 MG/SENNA 8.6 MG TAB PO SCH (12:48)
[2017-09-19] MEDS: METOPROLOL TARTRATE 25 MG TAB PO SCH (12:49)
[2017-09-19] MEDS: ASPIRIN 81 MG CHEW TAB CHEW SCH (12:49)
[2017-09-19] MEDS: FERROUS SULFATE 325 MG (65 MG ELEMENTAL IRON) TAB PO SCH (12:50)
[2017-09-19] MEDS: PANTOPRAZOLE SOD 40 MG DELAYED RELEASE TAB PO SCH (12:50)
[2017-09-19] MEDS: THIAMINE HCL 100 MG TAB PO SCH (12:51)
[2017-09-19] MEDS: CITALOPRAM HYDROBROMIDE 40 MG TAB PO SCH (12:51)
[2017-09-19] MEDS: SODIUM CHLORIDE 0.9% FLUSH 10 ML FLUSH IV FLUSH SCH ×2 (12:54→12:55)
[2017-09-19] MEDS: ACETAMINOPHEN 325 MG TAB PO PRN (14:57)
[2017-09-19] MEDS: FOLIC ACID 1 MG TAB PO SCH (14:59)
== END 2017-09-19 15:41 | disposition home or self-care (01) ==
LOC: NEPE 12:38 → NEDA 17:04 → NEPHCDU 19:58
PROVIDERS: ADMIT Family Medicine; ATTEND Family Medicine
DX: R07.2 Precordial pain (principal); F10.239 Alcohol dependence with withdrawal, unspecified; Y90.0 Blood alcohol level of less than 20 mg/100 ml; I10 Essential (primary) hypertension; D50.9 Iron deficiency anemia, unspecified; R63.8 Other symptoms and signs concerning food and fluid intake; R94.31 Abnormal electrocardiogram [ECG] [EKG]; D57.3 Sickle-cell trait; F32.9 Major depressive disorder, single episode, unspecified; F41.9 Anxiety disorder, unspecified; G62.9 Polyneuropathy, unspecified; M06.9 Rheumatoid arthritis, unspecified; Z79.899 Other long term (current) drug therapy; Z91.14 Patient's other noncompliance with medication regimen; Z23 Encounter for immunization; E66.9 Obesity, unspecified; Z98.84 Bariatric surgery status; Z68.42 Body mass index [BMI] 45.0-49.9, adult
CPT/HCPCS: 71046; 78452; 80048; 80053; 80307; 82550; 82552; 83735; 84484; 85025; 85379; 85610; 85730; 87804; 90732; 93005; 93017; 96361; 96372; 96374; 96376; 99285; A9502; G0009; G0378; J0280; J1650; J2060; J2785; J7030; 90471